=== PATIENT | female | born 1935 ===

== ENCOUNTER 2018-10-15 12:00 | Day surgery (SDC) | payer OTHER | END 2018-10-15 16:55 | disposition home or self-care (01) | LOC: AMB-ENDOS 12:00 | DX: K57.30 Diverticulosis of large intestine without perforation or abscess without bleeding (principal); K64.1 Second degree hemorrhoids ==

== ENCOUNTER → 2018-11-19 | Day surgery (SDC) | payer OTHER ==
[~2018-11-19] MED LIST: COREG PO; COZAAR100 MG PO; ISORBIDE PO; LANTUS; NORVASC5 MG PO; PLAVIX75 MG PO; PROTONIX40 M1 PO; ZANTAC300 MG PO; [UNRECOGNIZED DRUG - CODE] PO
== END | disposition home or self-care (01) ==
LOC: ADM 11-17 12:30 → CIR.AMB 05:33
DX: K64.5 Perianal venous thrombosis (principal)

== ENCOUNTER 2018-11-26 18:25 | Emergency (ER) | payer OTHER ==
[~2018-11-26] VITALS: Ht 162.6 cm; Wt 72.6 kg
== END 2018-11-26 20:40 | disposition home or self-care (01) ==
LOC: ER 18:25
DX: K91.841 Postprocedural hemorrhage of a digestive system organ or structure following other procedure (principal); Y83.8 Other surgical procedures as the cause of abnormal reaction of the patient, or of later complication, without mention of misadventure at the time of the procedure; Y92.89 Other specified places as the place of occurrence of the external cause